=== PATIENT | male | born 1950 | race Caucasian/White ===

== ENCOUNTER 2017-01-24 12:47 | Emergency (ER) | payer MEDICAID, MEDICARE, OTHER ==
[2017-01-24 13:33] VITALS: BP 144/91
--- NOTE | 2017-01-24 13:55 | UC ---
UC General HPI - HPI Summary HPI Summary: Patient has hx of gout, has been drinking alot of alchohol and developed increased right toe pain over the past few days. has been taking ibuprofen for pain without relief - History of Current Complaint Chief Complaint: UCLowerExtremity Stated Complaint: RIGHT FOOT COMPLAINT Time Seen by Provider: 01/24/17 13:35 Hx Obtained From: Patient Onset/Duration: Sudden Onset, Lasting Days Timing: Constant Onset Severity: Mild Current Severity: Moderate - Allergy/Home Medications Allergies/Adverse Reactions: Allergies Allergy/AdvReac Type Severity Reaction Status Date / Time No Known Allergies Allergy Verified 01/24/17 13:33 Home Medications: Home Medications Ibuprofen [Ibuprofen 100 MG/5 ML] 400 mg PO Q6H PRN 01/24/17 [History Confirmed 01/24/17] PMH/Surg Hx/FS Hx/Imm Hx Previously Healthy: Yes - Surgical History Surgical History: Yes Surgery Procedure, Year, and Place: left achilles tendon repair 2011 - Family History Known Family History: Positive: Hypertension - Social History Alcohol Use: Weekly Alcohol Amount: 8-10 beers Substance Use Type: Excessive Caffeine Smoking Status (MU): Current Some Day Smoker Type: Cigars Review of Systems Constitutional: Negative Skin: Negative Eyes: Negative ENT: Negative Respiratory: Negative Cardiovascular: Negative Gastrointestinal: Negative Genitourinary: Negative Motor: Negative Neurovascular: Negative Musculoskeletal: Arthralgia, Edema Neurological: Negative Psychological: Negative Is Patient Immunocompromised?: No All Other Systems Reviewed And Are Negative: Yes Physical Exam Triage Information Reviewed: Yes Appearance: Well-Nourished, Ill-Appearing, Pain Distress Vital Signs: Initial Vital Signs Temp 97.3 F 01/24/17 13:25 Pulse 101 01/24/17 13:25 Resp 18 01/24/17 13:25 BP 144/91 01/24/17 13:25 Vital Signs Reviewed: Yes Eye Exam: Normal ENT Exam: Normal ENT: Positive: Hearing grossly normal, Pharynx normal, TMs normal Dental Exam: Normal Neck exam: Normal Respiratory Exam: Normal Respiratory: Positive: Chest non-tender, Lungs clear, Normal breath sounds Cardiovascular Exam: Normal Cardiovascular: Positive: RRR, No Murmur, Pulses Normal Abdominal Exam: Normal Abdomen Description: Positive: Nontender, No Organomegaly, Soft Bowel Sounds: Positive: Present Musculoskeletal Exam: Normal Musculoskeletal: Positive: Edema @ - in right great toe, Other: - painful to any touch Neurological Exam: Normal Neurological: Positive: Alert, Muscle Tone Normal Psychological Exam: Normal Skin Exam: Normal Course/Dx - Course Course Of Treatment: hx obtained, exam performed ,meds reviewed, treated for gout , recommend follow up - Differential Dx - Multi-Symptom Provider Diagnoses: gout right toe Discharge - Discharge Plan Condition: Stable Disposition: HOME Prescriptions: predniSONE TAB* [Deltasone TAB*] 40 mg PO DAILY #10 tab Patient Education Materials: Low Purine Diet (ED), Gout (ED) Additional Instructions: 1. take the medication as prescribed 2. elevate the leg at rest 3. I included a list of foods to avoid to prevent gout flare ups. 4. Follow up with your Primary doctor if pain persists, you develop more swelling or redness. or fever.
== END 2017-01-24 14:16 | disposition home or self-care (01) ==
LOC: UCCORT 12:47
DX: M10.9 Gout, unspecified (principal)
CPT/HCPCS: 99203; G0463